=== PATIENT | female | born 1980 | race Caucasian/White ===

== ENCOUNTER 2024-05-23 10:11 | Emergency (ER) | payer BC ==
[~2024-05-23] VITALS: Ht 149.9 cm; Wt 60.3 kg
[~2024-05-23 10:11] MED LIST: MULTIVITAMINS1 EAC7
[2024-05-23] MEDS: KETOROLAC TROMETHAMINE 60 MG/2 ML VIAL IM ONE (11:35)
[2024-05-23 12:57] VITALS: PULSE 68; RESP 16; TEMP 98.5; O2SAT 100
== END 2024-05-23 13:15 | disposition home or self-care (01) ==
LOC: ER 10:20
DX: M25.571 Pain in right ankle and joints of right foot (principal); S93.491D Sprain of other ligament of right ankle, subsequent encounter; X58.XXXD Exposure to other specified factors, subsequent encounter; J45.909 Unspecified asthma, uncomplicated; F41.9 Anxiety disorder, unspecified
CPT/HCPCS: 73590; 73610; 99283; J1885